=== PATIENT | female | born 1955 | race Caucasian/White ===

== ENCOUNTER 2023-05-29 14:20 | Inpatient (IN) | payer MEDICARE, BC ==
[~2023-05-29] VITALS: Ht 160 cm; Wt 116.0 kg
[2023-05-29] MEDS ORDERED: KETOROLAC TROMETH 60MG/2ML VIAL IM ONE (14:45)
[2023-05-29] MEDS ORDERED: HYDROcodone-ACET 10/325MG TAB PO ONE ×2 (14:45→21:30)
[2023-05-29 15:06] LABS: Basophils # (auto) 0.1 10 ^3/uL (0-0.2); Basophils % (auto) 1.3 % (0.0-2.0); Eosinophils # (auto) 0.2 10 ^3/uL (0-0.8); Eosinophils % (auto) 1.7 % (0.0-7.0); Hematocrit 38.9 % (36.0-46.0); Hemoglobin 13.2 g/dL (12.2-16.2); Lymphocytes % (auto) 9.9 % (10.0-50.0); Mean Corpuscular Hemoglobin 30.2 pg (28.0-32.0); Mean Corpuscular Hgb Conc. 33.8 g/dL (32.0-36.0); Mean Corpuscular Volume 89.3 fL (80.0-100.0); Monocytes # (auto) 0.8 10 ^3/uL (0-1.3); Monocytes % (auto) 8.2 % (0.0-12.0); Neutrophils # (auto) 8.1 10 ^3/uL (1.6-8.6); Neutrophils % (auto) 78.9 % (37.0-80.0); Nucleated Red Blood Cells % 0.2 %; Red Blood Cells 4.36 10^6/uL (4.0-5.20); Red Cell Distribution Width 14.5 % (11.8-14.3); White Blood Cell 10.3 10^3/uL (4.4-10.8)
[2023-05-29 15:39] LABS: Albumin 3.6 g/dL (3.4-5.0); Calcium 9.3 mg/dL (8.5-10.1); Potassium 3.4 mmol/L (3.5-5.1)
[2023-05-29 15:49] LABS: BUN/Creatinine Ratio 30.8 (10.0-20.0); Bilirubin, Total 2.2 mg/dL (0.2-1.0); Total Protein 6.7 g/dL (6.4-8.2)
[2023-05-30 01:55] VITALS: PULSE 85; RESP 14; O2SAT 92
[2023-05-30] MEDS: hydrALAZINE HCL 20 MG/ML VL IV PRN (03:27)
[2023-05-30] MEDS ORDERED: HYDROcodone-ACET 5/325MG TAB PO PRN (04:00)
[2023-05-30] MEDS ORDERED: ACETAMINOPHEN 325 MG TAB PO PRN (04:00)
[2023-05-30] MEDS ORDERED: NITROGLYCERIN 0.4 MG SL TAB SL PRN (04:00)
[2023-05-30] MEDS ORDERED: MORPHINE SULFATE INJ 2 MG/ml SYRG IV PRN ×2 (04:00)
[2023-05-30] MEDS ORDERED: DOCUSATE SOD 100 MG CAP PO PRN (04:00)
[2023-05-30] MEDS ORDERED: ONDANSETRON HCL 4 MG/2 ML VIAL IV PRN (04:00)
[2023-05-30 05:04] LABS: Urine Bacteria NONE SEEN /hpf (None Seen); Urine Blood Negative /uL (Negative); Urine Clarity Clear (Clear); Urine Color Yellow (Yellow); Urine Hyaline Cast FEW /lpf (0 - 2); Urine Protein, UAD TRACE (Negative); Urine Specific Gravity 1.026 (1.001-1.035); Urine WBC 3 /hpf (0 - 5); Urine pH 5.5 (5.0-8.0)
[2023-05-30] MEDS: cefTRIAXone 1GM/50ML D5W 50 ML IV SCH (05:06)
[2023-05-30] MEDS: SODIUM CHLORIDE 0.9% 1,000 ML IV SCH ×2 (05:06→21:05)
[2023-05-30] MEDS: ENOXAPARIN SOD 40 MG/0.4 ML SYRINGE SC SCH (10:40)
[2023-05-30] MEDS ORDERED: POTASSIUM CHL 20 Meq TABLET PO ONE (12:30)
[2023-05-30 14:00] VITALS: BP 151/60; PULSE 97; RESP 22; TEMP 98.4; O2SAT 96
[2023-05-30 14:23] LABS: Basophils # (auto) 0.1 10 ^3/uL (0-0.2); Basophils % (auto) 0.8 % (0.0-2.0); Eosinophils # (auto) 0.2 10 ^3/uL (0-0.8); Hematocrit 34.9 % (36.0-46.0); Hemoglobin 11.8 g/dL (12.2-16.2); Lymphocytes # (auto) 1.1 10 ^3/uL (0.4-5.4); Lymphocytes % (auto) 13.1 % (10.0-50.0); Mean Corpuscular Hemoglobin 30.2 pg (28.0-32.0); Mean Corpuscular Hgb Conc. 33.7 g/dL (32.0-36.0); Mean Corpuscular Volume 89.5 fL (80.0-100.0); Monocytes # (auto) 0.6 10 ^3/uL (0-1.3); Monocytes % (auto) 7.9 % (0.0-12.0); Neutrophils # (auto) 6.1 10 ^3/uL (1.6-8.6); Neutrophils % (auto) 75.2 % (37.0-80.0); Nucleated Red Blood Cells % 0.2 %; Red Blood Cells 3.91 10^6/uL (4.0-5.20); Red Cell Distribution Width 14.4 % (11.8-14.3); White Blood Cell 8.1 10^3/uL (4.4-10.8)
[2023-05-30 15:05] LABS: Calcium 8.8 mg/dL (8.5-10.1); Potassium 3.1 mmol/L (3.5-5.1)
[2023-05-30 15:10] LABS: Bilirubin, Total 1.6 mg/dL (0.2-1.0)
[2023-05-30 15:20] LABS: INR 1.08 (0.9-1.15); Partial Thromboplastin Time 28.5 SEC (24.5-34.5); Prothrombin Time 11.3 sec (9.3-11.8)
[2023-05-30 15:40] VITALS: PULSE 77; RESP 17; O2SAT 96
[2023-05-30 17:00] VITALS: BP 130/61; PULSE 90; RESP 22; TEMP 98.4; O2SAT 95
[2023-05-30 20:00] VITALS: PULSE 95; RESP 16
[2023-05-30 22:00] VITALS: BP 160/70; PULSE 95; RESP 16; TEMP 98.1; O2SAT 94
[2023-05-31] VITALS (8 sets, daily range): BP systolic 130–158; BP diastolic 59–73; PULSE 79–101; RESP 10–19; TEMP 97.9–98.9; O2SAT 95–100
[2023-05-31 06:44] LABS: Basophils # (auto) 0 10 ^3/uL (0-0.2); Basophils % (auto) 0.7 % (0.0-2.0); Eosinophils # (auto) 0.2 10 ^3/uL (0-0.8); Eosinophils % (auto) 3.3 % (0.0-7.0); Hematocrit 31.9 % (36.0-46.0); Hemoglobin 10.9 g/dL (12.2-16.2); Lymphocytes # (auto) 1.1 10 ^3/uL (0.4-5.4); Lymphocytes % (auto) 17.2 % (10.0-50.0); Mean Corpuscular Hemoglobin 30.9 pg (28.0-32.0); Mean Corpuscular Hgb Conc. 34.2 g/dL (32.0-36.0); Mean Corpuscular Volume 90.3 fL (80.0-100.0); Monocytes # (auto) 0.6 10 ^3/uL (0-1.3); Monocytes % (auto) 9.3 % (0.0-12.0); Neutrophils # (auto) 4.6 10 ^3/uL (1.6-8.6); Neutrophils % (auto) 69.5 % (37.0-80.0); Nucleated Red Blood Cells % 0.1 %; Red Blood Cells 3.53 10^6/uL (4.0-5.20); Red Cell Distribution Width 14.5 % (11.8-14.3); White Blood Cell 6.6 10^3/uL (4.4-10.8)
[2023-05-31 06:48] LABS: Albumin 2.6 g/dL (3.4-5.0); Calcium 8.3 mg/dL (8.5-10.1); Potassium 3.4 mmol/L (3.5-5.1)
[2023-05-31 06:58] LABS: Bilirubin, Total 1.4 mg/dL (0.2-1.0); Total Protein 5.9 g/dL (6.4-8.2)
[2023-05-31] MEDS ORDERED: ceFAZolin 1GM/50ML 100 ML IV ONE (07:51)
[2023-05-31] MEDS ORDERED: SUCCINYLCHOLINE CHLORIDE 20 MG/ML 10ML VIAL IV ONE (08:00)
[2023-05-31] MEDS ORDERED: MIDAZOLAM HCL 2MG/2ML 2ml VIAL (1mg/ml) ONE (08:02)
[2023-05-31] MEDS ORDERED: fentaNYL CITRATE 100 MCG/2 ML VL ONE (08:02)
[2023-05-31] MEDS ORDERED: HYDROCORTISONE SOD SUCC 100 MG/2ML INJ VIAL ONE (08:02)
[2023-05-31] MEDS ORDERED: ETOMIDATE (2MG/ML) 20ML VIAL IV ONE (08:03)
[2023-05-31] MEDS ORDERED: ROCURONIUM 10MG/ML 10ML VIAL IV ONE (08:08)
[2023-05-31] MEDS ORDERED: DexAMETHasone SOD PHOS 10MG/1ML VIAL INJ ONE (09:03)
[2023-05-31] MEDS ORDERED: GLYCOPYRROLATE 0.2 MG/ML 1ML VIAL ONE (09:21)
[2023-05-31] MEDS ORDERED: NEOSTIGMINE 1 MG/ML INJ (10mg/10ML VIAL) ONE (09:21)
[2023-05-31] MEDS ORDERED: ACETAMINOPHEN 325 MG TAB PO PRN (10:15)
[2023-05-31] MEDS ORDERED: LABETALOL HCL 5 MG/ML 4ML SYRINGE IV PRN (10:30)
[2023-05-31] MEDS ORDERED: ONDANSETRON HCL 4 MG/2 ML VIAL IV PRN (10:30)
[2023-05-31] MEDS: HYDROmorphone HCL 2 MG/ML VL/or syr IV PRN ×4 (10:30→11:15)
[2023-05-31] MEDS ORDERED: HYDROmorphone HCL 2 MG/ML VL/or syr IV PRN (10:30)
[2023-05-31] MEDS: hydrALAZINE HCL 20 MG/ML VL IV PRN (10:40)
[2023-05-31] MEDS: cefTRIAXone 1GM/50ML D5W 50 ML IV SCH (13:08)
[2023-05-31] MEDS: D5W/LACTATED RINGERS 1,000 ML IV SCH (13:10)
[2023-05-31] MEDS: ENOXAPARIN SOD 40 MG/0.4 ML SYRINGE SC SCH (13:16)
[2023-05-31] MEDS: SODIUM CHLORIDE 0.9% 1,000 ML IV SCH ×2 (13:20→19:45)
[2023-05-31] MEDS: ceFAZolin 2 GM/D5W100ml 100 ML IV SCH (13:43)
[2023-05-31] MEDS: SODIUM CHLOR 0.9% PF (SALINE LOCK) 10ML VIAL/SYR IV SCH (13:43)
[2023-05-31] MEDS ORDERED: IBUP-1453 PO (15:02)
[2023-05-31] MEDS ORDERED: [UNRECOGNIZED DRUG - CODE] PO (15:10)
[2023-05-31] MEDS ORDERED: DIPH1TAB OR (15:10)
[2023-05-31] MEDS ORDERED: ONDANSETRON HCL 4 MG/2 ML VIAL IV ONE (19:24)
[2023-05-31] MEDS: HYDROcodone-ACET 10/325MG TAB PO PRN (19:48)
[2023-06-01] VITALS (8 sets, daily range): BP systolic 138–161; BP diastolic 49–87; PULSE 71–83; RESP 16–18; TEMP 97.9–98.6; O2SAT 90–98
[2023-06-01] MEDS: ceFAZolin 2 GM/D5W100ml 100 ML IV SCH (01:00)
[2023-06-01] MEDS: SODIUM CHLOR 0.9% PF (SALINE LOCK) 10ML VIAL/SYR IV SCH ×4 (01:00→22:00)
[2023-06-01] MEDS: D5W/LACTATED RINGERS 1,000 ML IV SCH ×3 (01:00→16:45)
[2023-06-01 05:49] LABS: Basophils # (auto) 0 10 ^3/uL (0-0.2); Basophils % (auto) 0.1 % (0.0-2.0); Eosinophils # (auto) 0.1 10 ^3/uL (0-0.8); Eosinophils % (auto) 1.3 % (0.0-7.0); Hemoglobin 9.9 g/dL (12.2-16.2); Lymphocytes # (auto) 1.2 10 ^3/uL (0.4-5.4); Lymphocytes % (auto) 11.7 % (10.0-50.0); Mean Corpuscular Hemoglobin 31.3 pg (28.0-32.0); Monocytes # (auto) 0.9 10 ^3/uL (0-1.3); Monocytes % (auto) 9.2 % (0.0-12.0); Neutrophils % (auto) 77.7 % (37.0-80.0); Nucleated Red Blood Cells % 0.2 %; Red Blood Cells 3.15 10^6/uL (4.0-5.20); Red Cell Distribution Width 14.6 % (11.8-14.3); White Blood Cell 10.3 10^3/uL (4.4-10.8)
[2023-06-01] MEDS: HYDROcodone-ACET 10/325MG TAB PO PRN ×3 (06:00→20:15)
[2023-06-01 06:01] LABS: Calcium 7.9 mg/dL (8.5-10.1); Potassium 3.7 mmol/L (3.5-5.1)
[2023-06-01 06:06] LABS: Albumin 2.4 g/dL (3.4-5.0); BUN/Creatinine Ratio 27.6 (10.0-20.0); Bilirubin, Total 0.6 mg/dL (0.2-1.0); Total Protein 5.5 g/dL (6.4-8.2)
[2023-06-01] MEDS: cefTRIAXone 1GM/50ML D5W 50 ML IV SCH (09:53)
[2023-06-01] MEDS: PARoxetine 20 MG TAB PO SCH (09:53)
[2023-06-01] MEDS: ENOXAPARIN SOD 40 MG/0.4 ML SYRINGE SC SCH (09:53)
[2023-06-01] MEDS ORDERED: ENOXAPARIN SOD 40 MG/0.4 ML SYRINGE SC SCH (10:00)
[2023-06-01] MEDS ORDERED: IBUP-1453 PO (17:52)
[2023-06-01] MEDS ORDERED: DIPH-753 PO (17:52)
[2023-06-01] MEDS: SODIUM CHLORIDE 0.9% 1,000 ML IV SCH (22:40)
[2023-06-02] MEDS: D5W/LACTATED RINGERS 1,000 ML IV SCH ×2 (04:38→14:56)
[2023-06-02 05:00] VITALS: BP 166/71; PULSE 73; RESP 17; TEMP 98.4; O2SAT 99
[2023-06-02] MEDS: SODIUM CHLOR 0.9% PF (SALINE LOCK) 10ML VIAL/SYR IV SCH ×2 (06:00→14:59)
[2023-06-02] MEDS: hydrALAZINE HCL 20 MG/ML VL IV PRN (07:05)
[2023-06-02 08:00] VITALS: PULSE 76; PULSE 86; RESP 16; O2SAT 96
[2023-06-02] MEDS: cefTRIAXone 1GM/50ML D5W 50 ML IV SCH (08:12)
[2023-06-02] MEDS: ENOXAPARIN SOD 40 MG/0.4 ML SYRINGE SC SCH (08:13)
[2023-06-02] MEDS: PARoxetine 20 MG TAB PO SCH (08:13)
[2023-06-02] MEDS: HYDROcodone-ACET 10/325MG TAB PO PRN ×2 (08:14→18:56)
[2023-06-02 09:00] VITALS: BP 161/70; PULSE 74; RESP 19; TEMP 98.2; O2SAT 93
[2023-06-02 12:06] LABS: COVID19 ANTIGEN SOFIA FIA NEGATIVE (NEGATIVE)
[2023-06-02 13:00] VITALS: BP 147/57; PULSE 91; RESP 21; TEMP 98.5; O2SAT 90
[2023-06-02] MEDS ORDERED: ALPRAZolam 0.5 MG TAB PO SCH (14:00)
[2023-06-02] MEDS: SODIUM CHLORIDE 0.9% 1,000 ML IV SCH (15:20)
[2023-06-02 16:58] VITALS: BP 159/58; PULSE 78; RESP 19; TEMP 97.9; O2SAT 98
[2023-06-02 18:43] VITALS: BP 166/71; PULSE 86; TEMP 36.6
== END 2023-06-02 19:25 | DRG 481 ==
LOC: EDBD 14:20 → ER 14:20 → OVERFLOW 05-30 03:58 → CENTRAL 05-30 12:17 → TELE-CENTR 05-31 10:32
PROVIDERS: ADMIT Family Medicine; ATTEND Family Medicine
PROC: 0QSC36Z Reposition Left Lower Femur with Intramedullary Internal Fixation Device, Percutaneous Approach (ICD-10-PCS; principal; 2023-05-31 08:01)
DX: S72.452A Displaced supracondylar fracture without intracondylar extension of lower end of left femur, initial encounter for closed fracture (principal); Z68.41 Body mass index [BMI] 40.0-44.9, adult; I10 Essential (primary) hypertension; E66.01 Morbid (severe) obesity due to excess calories; W18.39XA Other fall on same level, initial encounter; Z20.822 Contact with and (suspected) exposure to COVID-19; R26.81 Unsteadiness on feet; F32.A Depression, unspecified; F41.9 Anxiety disorder, unspecified; Y93.89 Activity, other specified; Z88.2 Allergy status to sulfonamides; Y92.89 Other specified places as the place of occurrence of the external cause; Y99.8 Other external cause status; Z87.891 Personal history of nicotine dependence; Z79.899 Other long term (current) drug therapy
CPT/HCPCS: 36415; 71045; 73560; 73700; 76000; 80053; 80061; 81001; 83036; 83690; 84443; 84484; 85025; 85610; 85730; 87426; 93306; 96372; 97110; 97163; 97530; G0378; J0330; J0690; J0696; J1100; J1885; J2250; J2405